=== PATIENT | male | born 1985 | race Caucasian/White ===

== ENCOUNTER 2018-06-05 12:22 | Outpatient (CLI) | payer OTHER ==
[2018-06-05 13:28] LABS: Hemoglobin 15.1 g/dL (14.0-18.0); Mean Corpuscular HGB CONC 33.9 g/dL (32.0-36.0); Mean Corpuscular Hemoglobin 31.2 pg (27.0-31.0); Mean Corpuscular Volume 91.9 fL (78.0-98.0); Mean Platelet Volume 7.3 fL (7.4-10.4); Platelet Count 207 thou/uL (130-400); RBC Distribution Width 10.9 % (11.5-14.5); Red Blood Cell (RBC) Count 4.84 mill/uL (4.70-6.10)
[2018-06-05 13:57] LABS: Anion Gap 11 mmol/L (10-20); BUN (Urea Nitrogen) 10 mg/dL (8.9-20.6); Calc. Creatinine Clearance 0 mL/min (70-130); Calcium 9.6 mg/dL (7.8-10.44); Carbon Dioxide 25 mmol/L (22-29); Chloride 108 mmol/L (98-107); Estimated GFR-MDRD 78; Glucose 94 mg/dL (70-105); Potassium 4.2 mmol/L (3.5-5.1); Sodium 140 mmol/L (136-145)
== END 2018-06-05 12:23 | disposition home or self-care (01) ==
LOC: LABBT 12:22
PROVIDERS: ATTEND Surgery
DX: Z01.812 Encounter for preprocedural laboratory examination (principal); K40.90 Unilateral inguinal hernia, without obstruction or gangrene, not specified as recurrent
CPT/HCPCS: 80048; 85027

== ENCOUNTER 2018-06-15 05:58 | Day surgery (SDC) | payer OTHER ==
[2018-06-15] MEDS ORDERED: Ketorolac Tromethamine 30 MG/ML VIAL ONE (06:17)
[2018-06-15] MEDS ORDERED: Midazolam HCl 2 mg/2 ml Vial ONE (09:00)
[2018-06-15] MEDS ORDERED: Fentanyl 100 MCG/2 ML VIAL ONE (09:00)
[2018-06-15] MEDS ORDERED: Lidocaine 2% Jelly 5 ML TUBE ONE (09:00)
[2018-06-15] MEDS ORDERED: Bupivacaine HCl 0.5%/Epinephrine 1:200,000/PF 30 ml Vial ONE (09:03)
[2018-06-15] MEDS ORDERED: Bupivacaine PF 0.5% 30 ML VIAL ONE (09:03)
[2018-06-15] MEDS ORDERED: Meperidine HCl/PF 25 MG/ML VIAL ONE (11:11)
[2018-06-15] MEDS ORDERED: PROPOFOL 200 MG/20 ML VIAL ONE (15:05)
[2018-06-15] MEDS ORDERED: Lidocaine 1% PF 5 ML VIAL ONE (15:05)
[2018-06-15] MEDS ORDERED: Dexamethasone 20 MG/5 ML VIAL ONE (15:05)
[2018-06-15] MEDS ORDERED: Ondansetron PF 4 MG/2 ML Vial ONE (15:05)
--- NOTE | 2018-06-15 15:12 | PDOC.OP ---
Operative Note - Operative Note Operative Note: PROCEDURE: Inguinal hernia repair, right SURGEON: Kit Cano M.D. DATE OF PROCEDURE: 06/15/2018 PREOPERATIVE DIAGNOSIS: Inguinal hernia, right POSTOPERATIVE DIAGNOSIS: Inguinal hernia, right indirect HISTORY: Patient with a history of an enlarging bulge in the right groin area found to have a reducible inguinal hernia on exam. Recommendation was made to proceed with open repair. FINDINGS: Large indirect inguinal hernia repaired with large plug and patch. DESCRIPTION OF PROCEDURE: After informed consent was obtained and appropriate preoperative antibiotics were administered, the patient was taken to the operating room, placed in the supine position and general endotracheal anesthesia was administered. The inguinal area was prepped and draped in the standard sterile fashion and local anesthesia was infused to the skin and subcutaneous tissues overlying the inguinal canal. An oblique skin incision was made in the direction of the skin crease. Dissection was carried down to the external oblique aponeurosis which was carefully incised in the direction of its fibers through the enlarged external ring. The aponeurosis was mobilized off the underlying structures. The ilioinguinal nerve was clearly identified and was densely adherent to the hernia sac and external oblique aponeurosis. This would have required extensive manipulation to retract from the operative field, so was divided high acid been previously discussed with the patient. The inguinal cord was mobilized at the level of the pubic tubercle. The cremasteric muscles were divided and the cord contents and floor of the canal were carefully examined. An indirect hernia was identified. The hernia sac was dissected free of the cord contents down to the level of the peritoneal reflection. The hernia sac was opened and was empty. The base of the hernia sac was encircled with a pursestring 3-0 Vicryl suture. The pursestring suture was secured and the hernia sac was resected. The base of the hernia sac was tied to the base of the Perfix plug. The Perfix plug was then placed into the internal ring and was tacked down to the internal oblique in a couple of locations. The patch was then secured to the pubic tubercle inferiorly, to the shelving edge of the inguinal ligament laterally, and secured at intervals to the internal oblique medially. A keyhole slit was created and placed around the inguinal cord contents and secured, and the ends secured to each other and to the underlying plug. The operative site was irrigated and hemostasis verified. Local anesthesia was infused into the muscles of the internal oblique medially. The On-Q pump was then tunneled into the wound and placed into the inguinal canal and primed. The external oblique aponeurosis was then closed with 2-0 Vicryl suture, taking care not to pull up any of the underlying cord contents or the On-Q pump tubing into the closure, and the remainder of the local was infused into the subcutaneous tissues circumferentially and to the skin. Jn's fascia was reapproximated with 3-0 Monocryl sutures and the skin was closed with 4-0 subcuticular Monocryl sutures. Dermabond dressings were placed and the On-Q tubing secured with a Steri-Strip and dressed with Dermabond. The patient was extubated and taken to the recovery room in good condition. Estimated blood loss was minimal. There were no complications.
== END 2018-06-15 13:20 | disposition home or self-care (01) ==
LOC: SDC 05:58
PROVIDERS: ATTEND Surgery
PROC: 0YU50JZ Supplement Right Inguinal Region with Synthetic Substitute, Open Approach (ICD-10-PCS; principal; 2018-06-15)
DX: K40.90 Unilateral inguinal hernia, without obstruction or gangrene, not specified as recurrent (principal)
CPT/HCPCS: 88302; A4306; C1781; J0131; J0670; J1100; J1885; J2001; J2175; J2250; J2405; J2704; J3010; S0020